=== PATIENT | female | born 1985 | race African-American/Black ===

== ENCOUNTER 2023-10-03 07:42 | Emergency (ER) | payer OTHER ==
[2023-10-03 07:58] VITALS: BP 154/92; PULSE 96; RESP 16; TEMP 98.8; BMI 29.3
[2023-10-03] MEDS ORDERED: diphenhydrAMINE HCL 25 MG CAPSULE (FP) PO ONE (09:23)
[2023-10-03] MEDS ORDERED: predniSONE 20 MG TABLET (UD) ONE (09:23)
[2023-10-03] MEDS ORDERED: FAMOTIDINE 20 MG TABLET ONE (09:23)
[2023-10-03] MEDS: FAMOTIDINE 20 MG TABLET PO ONE (09:25)
[2023-10-03] MEDS: predniSONE 20 MG TABLET (UD) PO ONE (09:25)
[2023-10-03] MEDS: diphenhydrAMINE HCL 25 MG CAPSULE (FP) PO ONE (09:25)
[2023-10-03] MEDS ORDERED: ACETAMINOPHEN 500 MG TABLET (FP) ONE (10:42)
[2023-10-03] MEDS: ACETAMINOPHEN 325 MG TABLET (FP) PO ONE (10:43)
== END 2023-10-03 12:26 | disposition home or self-care (01) ==
LOC: JER 07:42
DX: L50.0 Allergic urticaria (principal); T39.395A Adverse effect of other nonsteroidal anti-inflammatory drugs [NSAID], initial encounter
CPT/HCPCS: 99283-25

== ENCOUNTER 2023-10-04 05:02 | Observation (INO) | payer OTHER ==
[2023-10-04 05:11] VITALS: BMI 29.3
[2023-10-04] MEDS ORDERED: FAMOTIDINE 20 MG/50 ML IVPB 20 MG/50 ML MG IVPB ONE (05:19)
[2023-10-04] MEDS ORDERED: DEXAMETHASONE SOD PHOSPHATE 10 MG/1 ML VIAL ONE (05:19)
[2023-10-04] MEDS: DEXAMETHASONE SOD PHOSPHATE 10 MG/1 ML VIAL IVPUSH ONE (05:29)
[2023-10-04] MEDS: FAMOTIDINE 20 MG/50 ML IVPB 20 MG/50 ML MG IVPB ONE (05:29)
[2023-10-04 06:47] LABS: POTASSIUM 4.3 mmol/L (3.5-5.1)
[2023-10-04 06:49] LABS: BLOOD UREA NITROGEN 13.3 mg/dL (7-18); CALCIUM 9.3 mg/dL (8.5-10.1)
[2023-10-04 06:50] LABS: ALBUMIN 3.6 g/dl (3.4-5.0)
[2023-10-04 06:53] LABS: CREATININE 0.6 mg/dL (0.55-1.3)
[2023-10-04 06:54] LABS: BILIRUBIN,TOTAL 1.6 mg/dL (0.2-1); TOT PROT 6.9 g/dl (6.4-8.2)
[2023-10-04 07:19] LABS: BASO % 0.1 % (0-2.0); EOS % 0.4 % (0-4.5); HEMATOCRIT 46.8 % (32.4-45.2); HEMOGLOBIN 15.3 GM/dL (10.7-15.3); LYMPH % 13.9 % (8-40); MCH 22.2 pg (25.7-33.7); MCHC 32.6 g/dl (32.0-36.0); MEAN CELL VOLUME 67.9 fl (80-96); MEAN PLT VOLUME 9.2 fl (7.5-11.1); MONO % 2.2 % (3.8-10.2); NEUT % 83.4 % (42.8-82.8); PLATELET COUNT 311 10^3/uL (134-434); RBC 6.89 M/mm3 (3.60-5.2); RDW 15.2 % (11.6-15.6); WHITE BLOOD COUNT 13.1 K/mm3 (4.0-10.0)
[2023-10-04 07:54] LABS: EPI CELLS 10 /uL (0-25.1); HYALINE CASTS 1 /uL (0-3.1); PH,URINE 5.5 (5.0-8.0); URINE APPEARANCE CLEAR; URINE BACTERIA 51 /uL (0-1359); URINE BILIRUBIN 1+ (NEGATIVE); URINE COLOR ORANGE; URINE GLUCOSE (UA) NEGATIVE (NEGATIVE); URINE KETONE TRACE (NEGATIVE); URINE LEUK ESTERASE TRACE (NEGATIVE); URINE NITRITE NEGATIVE (NEGATIVE); URINE PROTEIN 1+ (NEGATIVE); URINE WBC 26 /uL (0-25.8)
[2023-10-04 10:38] LABS: URINE RBC 23.3 /uL (0-23.9)
[2023-10-04 10:41] LABS: URINE CRYSTALS MODERATE /hpf
[2023-10-04 11:31] LABS: BILIRUBIN,DIRECT 0.5 mg/dL (0.0-0.2)
[2023-10-04 14:20] VITALS: RESP 18
[2023-10-04] MEDS: diphenhydrAMINE HCL 25 MG CAPSULE (FP) PO PRN (15:42)
[2023-10-04] MEDS: FAMOTIDINE 20 MG TABLET PO SCH (21:31)
[2023-10-04] MEDS: METHIMAZOLE 5 MG TABLET PO SCH (21:31)
[2023-10-04] MEDS ORDERED: diphenhydrAMINE HCL 25 MG CAPSULE (FP) PO SCH (22:00)
[2023-10-05 10:16] LABS: HEMATOCRIT 38.5 % (32.4-45.2); HEMOGLOBIN 12.8 GM/dL (10.7-15.3); MCH 22.3 pg (25.7-33.7); MCHC 33.3 g/dl (32.0-36.0); MEAN PLT VOLUME 9.2 fl (7.5-11.1); PLATELET COUNT 297 10^3/uL (134-434); RBC 5.75 M/mm3 (3.60-5.2); RDW 15.3 % (11.6-15.6); WHITE BLOOD COUNT 10.8 K/mm3 (4.0-10.0)
[2023-10-05 10:31] LABS: POTASSIUM 3.5 mmol/L (3.5-5.1)
[2023-10-05 10:39] LABS: CALCIUM 8.9 mg/dL (8.5-10.1)
[2023-10-05 10:40] LABS: BLOOD UREA NITROGEN 13.9 mg/dL (7-18); MAGNESIUM 1.9 mg/dL (1.8-2.4)
[2023-10-05 10:43] LABS: CREATININE 0.6 mg/dL (0.55-1.3); PHOSPHOROUS 2.4 mg/dL (2.5-4.9)
[2023-10-05 10:44] LABS: BILIRUBIN,TOTAL 1.3 mg/dL (0.2-1); TOT PROT 6.1 g/dl (6.4-8.2)
[2023-10-05] MEDS: NAPH,MB-DB/K PH,MBDB POWDER PACKET PO ONE (12:08)
[2023-10-05] MEDS: methylPREDNISolone NA SUCC 40 MG/1 ML VIAL IVPUSH SCH (15:32)
[2023-10-05] MEDS: diphenhydrAMINE HCL 25 MG CAPSULE (FP) PO SCH (17:23)
[2023-10-06 08:23] LABS: POTASSIUM 4.2 mmol/L (3.5-5.1)
[2023-10-06 08:32] LABS: ALBUMIN 2.9 g/dl (3.4-5.0); BLOOD UREA NITROGEN 13.5 mg/dL (7-18); CALCIUM 8.8 mg/dL (8.5-10.1)
[2023-10-06 08:36] LABS: CREATININE 0.3 mg/dL (0.55-1.3)
[2023-10-06 08:37] LABS: BILIRUBIN,TOTAL 0.9 mg/dL (0.2-1)
[2023-10-06 08:45] LABS: HEMOGLOBIN 11.8 GM/dL (10.7-15.3); MCH 22.5 pg (25.7-33.7); MCHC 33.8 g/dl (32.0-36.0); MEAN CELL VOLUME 66.7 fl (80-96); MEAN PLT VOLUME 9.1 fl (7.5-11.1); PLATELET COUNT 315 10^3/uL (134-434); RBC 5.25 M/mm3 (3.60-5.2); RDW 15.5 % (11.6-15.6); WHITE BLOOD COUNT 16.9 K/mm3 (4.0-10.0)
[2023-10-06 13:52] VITALS: BP 132/71; PULSE 87; TEMP 98.1
== END 2023-10-06 14:00 | disposition home or self-care (01) ==
LOC: JER 05:02 → JERBED 08:29 → J6S 11:19
PROVIDERS: ADMIT Internal Medicine; ATTEND Internal Medicine
PROC: 3E033GC Introduction of Other Therapeutic Substance into Peripheral Vein, Percutaneous Approach (ICD-10-PCS; principal; 2023-10-04)
DX: T78.3XXA Angioneurotic edema, initial encounter (principal); Z88.8 Allergy status to other drugs, medicaments and biological substances; T78.40XA Allergy, unspecified, initial encounter; X58.XXXA Exposure to other specified factors, initial encounter; E05.90 Thyrotoxicosis, unspecified without thyrotoxic crisis or storm; R94.5 Abnormal results of liver function studies
CPT/HCPCS: 36415; 71045-TC-FY; 80053; 81003; 82248; 82728; 82962; 83540; 83550; 83735; 84100; 84439; 84443; 84466; 84484; 84703; 85025; 85027; 85045; 86850; 86900; 86901; 87086; 93005; 93010; 96365; 96375; 99285-25; G0378; J1100